=== PATIENT | female | born 1975 | race Caucasian/White ===

== ENCOUNTER 2024-11-11 09:27 | Outpatient (CLI) | payer BC, SELFPAY ==
[2024-11-13 00:48] LABS: HPV Source Cervical; HPV, High Risk by TMA Not Detected
== END 2024-11-11 09:28 | disposition home or self-care (01) ==
PROVIDERS: Visit Provider Obstetrics & Gynecology
DX: Z12.4 Encounter for screening for malignant neoplasm of cervix (principal); Z11.51 Encounter for screening for human papillomavirus (HPV)
CPT/HCPCS: 87624; 87625; 88141; 88142

== ENCOUNTER 2025-02-18 10:28 | Outpatient (CLI) | payer BC, SELFPAY ==
--- NOTE | 2025-02-18 10:45 | CRLHL7_ITS ---
For Patients: As a result of the Century Cures Act, medical imaging exams and procedure reports are released immediately into your electronic medical record. You may view this report before your referring provider. If you have questions, please contact your health care provider. INDICATION: BILATERAL SCREENING MAMMOGRAM, ASYMPTOMATIC 50 Y/O FEMALE COMPARISON: 12/07/2018 TECHNIQUE: Digital mammogram in CC and MLO projections including computer-aided detection (CAD) and tomosynthesis. BREAST COMPOSITION: There are scattered areas of fibroglandular density. FINDINGS: No suspicious findings. ASSESSMENT: BI-RADS 1 Negative RECOMMENDATION: Annual screening mammogram. A lay language report of this examination will be provided to the patient. Dictated by: Malachi Brito MD @ 02/18/2025 11:07:37 (Electronically Signed)
== END 2025-02-18 10:29 | disposition home or self-care (01) ==
LOC: MAMMO 10:29
PROVIDERS: Visit Provider Obstetrics & Gynecology
DX: Z12.31 Encounter for screening mammogram for malignant neoplasm of breast (principal)
CPT/HCPCS: 77063; 77067